=== PATIENT | female | born 1935 | race Caucasian/White ===

== ENCOUNTER 2018-08-09 12:09 | Inpatient (IN) | payer BC, MEDICARE ==
--- NOTE | 2018-08-09 12:33 | ERNOTE ---
Dyspnea - General Presenting Symptoms: shortness of breath Time Seen by Provider: 08/09/18 12:15 Source: patient - Immun/Allergies/Home Medications Immunizations: IMMUNIZATION HX Immunizations Up to Date Yes History of Influenza Vaccine No Hx Pneumococcal Vaccination No Allergies/Adverse Reactions: Allergies simvastatin Allergy (Mild, Verified 08/09/18 12:17) leg swelling soap Allergy (Mild, Verified 08/09/18 12:17) hives iodine Allergy (Verified 08/09/18 12:17) Hives morphine Allergy (Verified 08/09/18 12:17) Penicillins Allergy (Verified 08/09/18 12:17) procaine [Procaine] Allergy (Verified 08/09/18 12:17) procaine HCl [From Novocain] Allergy (Verified 08/09/18 12:17) Sulfa (Sulfonamide Antibiotics) [Sulfa(Sulfonamide Antibiotics)] Allergy (Verified 08/09/18 12:17) Tetanus Vaccines and Toxoid [Tetanus] Allergy (Verified 08/09/18 12:17) Home Medications: HOME MEDICATIONS metoprolol tartrate 50 mg tablet 100 mg PO BID #360 tab 04/26/18 [Last Taken Unknown] albuterol sulfate HFA 90 mcg/actuation aerosol inhaler 2 inh IH Q4H PRN 06/10/18 [Last Taken Unknown] ipratropium-albuterol 0.5 mg-3 mg(2.5 mg base)/3 mL nebulization soln 3 ml IH BID ml 06/10/18 [Last Taken Unknown] acetaminophen ER 650 mg tablet,extended release 650 mg PO Q8H PRN #120 tab 07/20/18 [Last Taken Unknown] cyclobenzaprine 5 mg tablet 5 mg PO TID PRN #90 tab 07/27/18 [Last Taken Unknown] tramadol 50 mg tablet 50 mg PO Q6H #56 tab 08/06/18 [Last Taken Unknown] predniSONE [Prednisone] 2 tab PO DAILY #10 tab 08/07/18 [Last Taken Unknown] Apixaban [Eliquis] 5 mg PO BID 08/09/18 [Last Taken Unknown] - History of Present Illness Narrative: Patient presents to the emergency department with severe shortness of breath. Patient was seen here 3 days ago and it was believed that she might have a pulmonary embolus, as she had an elevated d-dimer, so she was sent home on Eliquis and to arrange for a VQ scan this week. Patient arrived in the emergency department because she was getting worse and family was very worried about her. Severity: severe Treatment MORALE OFFICER: by patient, other - Eliquis Initiating event: Reports: none Frequency of episodes: Reports: no prior episodes Modifying Factors - (Improves): Reports: nothing Modifying Factors (Worsens): Reports: activity Associated Symptoms-Dyspnea: Reports: denies symptoms Prior Treatment: Reports: recently seen, treated by physician Review of Systems - Review of Systems Constitutional: Present: See HPI EYE: Present: no symptoms reported ENT: Present: no symptoms reported Respiratory: Present: See HPI Cardiology: Present: no symptoms reported Gastrointestinal/Abdominal: Present: no symptoms reported Genitourinary: Present: no symptoms reported Musculoskeletal: Present: no symptoms reported Skin: Present: no symptoms reported Neurological: Present: no symptoms reported Endocrine: Present: no symptoms reported Hematologic/Lymphatic: Present: no symptoms reported Psych: Present: no symptoms reported Medical History (Last Reviewed 08/09/18 @ 12:19 by Anisa Ugarte RN) Pulmonary embolism (Resolved) Hypertension (Chronic) Hyperlipidemia (Chronic) Hallux valgus (acquired) (Chronic) b/l COPD (chronic obstructive pulmonary disease) (Chronic) Chronic renal failure, stage 3 (moderate) (Chronic) Breast cancer (Resolved) Onset Date: ~2007 left 4 cycle TC chemo, completed 1 year Herceptin Right fibular fracture Onset Date: ~06/07/01 Surgical History: Surgical History (Last Reviewed 08/09/18 @ 12:19 by Anisa Ugarte RN) History of section Onset Date: Unknown History of colonoscopy Onset Date: ~10/27/12 Dr. Lugo-significant sigmoid diverticulosis History of dental surgery Onset Date: ~1980 all teeth removed History of left mastectomy Onset Date: ~2007 4 cycle TC chemo, completed 1 year Herceptin Tibial plateau fracture, left Onset Date: ~06/07/01 Depressed comminuted lateral tibial plateau fracture-open reduction by Dr. Austin Family History: Family History (Last Reviewed 08/07/18 @ 04:30 by Donald Pulliam MD) Grandfather Myocardial infarction Mother Hypertension CVA (cerebral vascular accident) Renal artery stenosis, transplant Artery from kidney to bladder Social History: Preferred Language Sinhala Smoking Status Former smoker Do you dip or chew tobacco Yes Alcohol Use none Drug Use none (Last Updated 08/04/18 @ 07:36 by Dhruv Ambrose MD) No Social History Section defined Physical Exam - Physical Exam General Appearance: Present: wd/wn, alert, severe distress Head Exam: Present: normal inspection, no evidence of injury Eye Exam: Normal inspection: bilateral, PERRL: bilateral Ears, Nose, Throat: Present: normal ENT inspection, H, normal pharynx Neck: Present: normal inspection, nontender Respiratory: Present: respiratory distress, decreased breath sounds - On the right, wheezing Cardiovascular/Chest: Present: no murmur, normal peripheral pulses, tachycardia Gastrointestinal/Abdominal: Present: normal bowel sounds, nontender, nondistended, soft, no organomegaly Rectal Exam: Present: deferred Back Exam: Present: normal inspection, normal range of motion Extremity Exam: Present: normal inspection, non-tender, no edema, normal range of motion Neurological Exam: Present: alert, oriented, normal mood/affect Skin Exam: Present: warm/dry, pallor Lymphatic Exam: Present: no adenopathy ED Progress - Results and Orders Patient's Lab Results:: I have reviewed the patient's lab results. - Vital Signs Patient's Vital Signs:: I have reviewed the patient's vital signs. Vital Signs: Vital Signs 08/09/18 12:12 Temperature 36.7 C Pulse Rate 103 H Respiratory Rate 33 H Blood Pressure 122/96 H O2 Sat by Pulse Oximetry 88 L - EKG EKG: NSR, other EKG read: Reviewed by me - X-Ray X-Ray #1 X-Ray: chest Interpretation: Reviewed by me - Progress/Reassessment Chief Complaint: Dyspnea Departure Clinical Impression: Hypoxia, Hypercarbia COPD (chronic obstructive pulmonary disease) Qualifiers: COPD type: COPD with acute exacerbation Qualified Code(s): J44.1 - Chronic obstructive pulmonary disease with (acute) exacerbation - Departure Disposition: Still a patient Condition: Critical Referrals: Dhruv Ambrose MD [Primary Care Provider] - Critical Care Note - Critical Care Note Total Time (mins): 45 Comments: After lengthy discussion with the patient and the family patient is opted to make herself a DNR. We discussed intubation and patient would prefer that this not be done so we have instituted BiPAP for her. Patient will need to be admitted to the intensive care unit, and given her underlying renal insufficiency, will arrange for a V/Q scan. Patient was sent home on Eliquis 3 days ago for possible PE, but we will start heparin on her for the time being. Patient will be admitted to Dr. Ambrose.
[2018-08-09] MEDS ORDERED: METHYLPREDNISOLONE SOD SUCC/PF 125 MG/2 ML VIAL ONE (12:34)
[2018-08-09] MEDS ORDERED: METHYLPREDNISOLONE SOD SUCC/PF 125 MG/2 ML VIAL IV ONE (12:36)
[2018-08-09 12:45] LABS: Hemoglobin 14.2 gm/dL (12.5-16.0); Mean Cell Volume 92.2 fl (78-100); Mean Corpuscular Hemoglobin 29.1 pg (27-31); Mean Corpuscular Hgb Conc 31.6 g/dl (32-36); Mean Platelet Volume 9.6 fl (8-12.5); Neutrophil # 8.5 K/mm3 (1.3-6.0); Neutrophil % 77.4 % (42-75.0); Platelet Count 277 K/mm3 (150-450); Red Blood Count 4.88 M/mm3 (4.2-5.4); Red Cell Distribution Width 14.4 % (11.5-14.0); White Blood Count 10.9 K/mm3 (4.0-10.5)
[2018-08-09 12:57] LABS: Prothrombin Time (Patient) 14.3 Seconds (9.0-11.0)
[2018-08-09 12:58] LABS: INR 1.42 INR (0.90-1.10); Partial Thrombolplastin Time 25.7 Seconds (24-32)
[2018-08-09 13:01] LABS: Albumin * 3.3 gm/dl (3.4-5.0); Anion Gap 12.5 mmol/L (6.8-13.8); BUN/Creatinine Ratio 41.5 (9.0-21.6); Bilirubin, Total 0.5 mg/dL (0.0-1.1); Ca. Corrected For Albumin 9.7 mg/dL (8.4-10.2); Calcium * 9.5 mg/dL (7.9-10.9); Carbon Dioxide 29.9 mmol/L (24-32.6); Potassium 4.4 mmol/L (3.4-4.6)
[2018-08-09] MEDS ORDERED: HEPARIN SODIUM,PORCINE 5,000 UNITS/ML VIAL IV ONE (13:17)
[2018-08-09] MEDS ORDERED: HEPARIN SODIUM,PORCINE/D5W 25,000 UNITS/500 ML BAG IV PRN (13:17)
[2018-08-09] MEDS ORDERED: HEPARIN SODIUM,PORCINE 5,000 UNITS/ML VIAL ONE (13:22)
[2018-08-09] MEDS ORDERED: HEPARIN SODIUM,PORCINE/D5W 25,000 UNITS/500 ML BAG IV ONE (13:22)
--- NOTE | 2018-08-09 16:38 | HP ---
Chief Complaint - Chief Complaint Date of Service: 08/09/18 Time of Service: 16:08 Chief Complaint: Shortness of breath History of Present Illness: Leatha Garcia, is an 83-year-old white female, with previous medical history of COPD, chronic renal failure stage III, hypertension, hyperlipidemia, history of breast cancer, history of pulmonary embolism, who was admitted on 08/09/2018 because of increasing shortness of breath. 3 days prior to admission ,the patient was seen here in the emergency room for shortness of breath and was found to have an elevated d-dimer. Because of her allergy to dye they did not do a CT angiogram and gave her Eliquis and discharged her . She was told to call my office to schedule a VQ scan. This morning her shortness of breath got severe and so she went to the emergency room . She was found to be hypoxic saturating in the 80s with 3 L NC. Her ABG on 4 L showed acute respiratory acidosis with hypoxemia and hypercapnea and so she was started on venti-mask and then transitioned to BiPAP 10-5. She was also started on heparin drip and admitted to [facility]. Medical History (Last Reviewed 08/09/18 @ 14:51 by Carly Smith RN) Pulmonary embolism (Suspected) Hypertension (Chronic) Hyperlipidemia (Chronic) Hallux valgus (acquired) (Chronic) b/l COPD (chronic obstructive pulmonary disease) (Chronic) Chronic renal failure, stage 3 (moderate) (Chronic) Breast cancer (Resolved) Onset Date: ~2007 left 4 cycle TC chemo, completed 1 year Herceptin Right fibular fracture Onset Date: ~06/07/01 Surgical History: Surgical History (Last Reviewed 08/09/18 @ 14:51 by Carly Smith RN) History of section Onset Date: Unknown History of colonoscopy Onset Date: ~10/27/12 Dr. Lugo-significant sigmoid diverticulosis History of dental surgery Onset Date: ~1980 all teeth removed History of left mastectomy Onset Date: ~2007 4 cycle TC chemo, completed 1 year Herceptin Tibial plateau fracture, left Onset Date: ~06/07/01 Depressed comminuted lateral tibial plateau fracture-open reduction by Dr. Austin Family History: Family History (Last Reviewed 08/09/18 @ 14:52 by Carly Smith RN) Grandfather Myocardial infarction Mother Hypertension CVA (cerebral vascular accident) Renal artery stenosis, transplant Artery from kidney to bladder Social History: Patient Lives/Resources Home Utilized Occupation retired Preferred Language Central African Do you have any restorationist or No cultural preference? Smoking Status Former smoker Have you smoked in the past 12 No months Do you dip or chew tobacco No Alcohol Use none Drug Use none (Last Updated 08/04/18 @ 07:36 by Dhruv Ambrose MD) No Social History Section defined Review Of Systems (GEN) - Review of Systems Generalized/Overall Review: Absent: Chills, Fever Respiratory: Present: Cough, Shortness of Breath Cardiac: Absent: Chest Pain, Edema, Palpitations Abdominal: Absent: Nausea, Vomiting Genitourinary: Absent: Urgency, Frequency Musculoskeletal: Present: Back Pain Immunizations: IMMUNIZATION HX Immunizations Up to Date Yes History of Influenza Vaccine No Hx Pneumococcal Vaccination No Allergies/Adverse Reactions: Allergies Allergy/AdvReac Type Severity Reaction Status Date / Time simvastatin Allergy Mild leg Verified 08/09/18 14:53 swelling soap Allergy Mild hives Verified 08/09/18 14:53 iodine Allergy Hives Verified 08/09/18 14:53 morphine Allergy Verified 08/09/18 14:53 Penicillins Allergy Verified 08/09/18 14:53 procaine [Procaine] Allergy Verified 08/09/18 14:53 procaine HCl [From Novocain] Allergy Verified 08/09/18 14:53 Sulfa (Sulfonamide Allergy Verified 08/09/18 14:53 Antibiotics) [Sulfa(Sulfonamide Antibiotics)] Tetanus Vaccines and Toxoid Allergy Verified 08/09/18 14:53 [Tetanus] Home Medications: HOME MEDICATIONS metoprolol tartrate 50 mg tablet 100 mg PO BID #360 tab 04/26/18 [Last Taken 08/09/18 09:00] albuterol sulfate HFA 90 mcg/actuation aerosol inhaler 2 inh IH Q4H PRN 06/10/18 [Last Taken Unknown] ipratropium-albuterol 0.5 mg-3 mg(2.5 mg base)/3 mL nebulization soln 3 ml IH BID ml 06/10/18 [Last Taken Unknown] tramadol 50 mg tablet 50 mg PO Q6H #56 tab 08/06/18 [Last Taken Unknown] predniSONE [Prednisone] 2 tab PO DAILY #10 tab 08/07/18 [Last Taken 08/07/18 21:00] Acetaminophen [Acetaminophen ER] 650 mg PO Q8H 08/09/18 [Last Taken 08/09/18 09:00] Apixaban [Eliquis] 5 mg PO BID 08/09/18 [Last Taken 08/09/18 09:00] Cyclobenzaprine HCl 5 mg PO TID 08/09/18 [Last Taken 08/09/18 09:00] Exam - Exam Vital Signs: Vital Signs - Last Taken Temp 36.3 C 08/09/18 15:00 Pulse 76 08/09/18 15:09 Resp 24 H 08/09/18 15:00 BP 123/42 08/09/18 15:00 Pulse Ox 97 08/09/18 15:00 Constitutional: Present: Alert, Oriented x3, Cooperative, Elderly ENT Exam: Present: hearing grossly normal Eye Exam: bilateral eye: normal inspection, PERRL, EOMI Neck: Present: supple Respiratory: Present: decreased breath sounds, rhonchi, No rales, No wheezing Cardiovascular/Chest: Present: regular rate, rhythm, no JVD, no murmur Abdomen: Present: Normal bowel sounds, soft, nontender, nondistended Extremity: Present: no pedal edema, no calf tenderness Diagnostic Studies: Abnormal Lab Results 08/09/18 08/09/18 08/09/18 Range/Units 12:38 12:40 12:40 WBC 10.9 H D (4.0-10.5) K/mm3 MCHC 31.6 L (32-36) g/dl RDW 14.4 H (11.5-14.0) % Immature Gran % (Auto) 0.70 H (0.001-0.429) % Immature Gran # (Auto) 0.08 H (0.000-0.0310) K/mm3 Neutrophils % 77.4 H (42-75.0) % Lymphocytes % 10.1 L (20-51) % Eosinophils % 7.9 H (0.0-3.0) % Neutrophils # 8.5 H (1.3-6.0) K/mm3 Lymphocytes # 1.10 L (1.5-3.5) k/mm3 Eosinophils # 0.9 H (0.0-0.7) k/mm3 PT (9.0-11.0) Seconds INR (Anticoag Therapy) (0.90-1.10) INR pCO2 76.0 H* (32.0-45.0) mmHg pO2 77.2 L (83.0-108.0) mmHg HCO3 28.4 H (21.0-28.0) mmol/L Total CO2 30.7 H (19.0-24.0) mmol/L ABG pH 7.19 L (7.35-7.45) ABG O2 Sat (Measured) 91.6 L (94.0-98.0) % BUN 44 H (3-23) mg/dL Est GFR (Non-Af Amer) 53 L D (60-130) mL/min BUN/Creatinine Ratio 41.5 H (9.0-21.6) Random Glucose 117 H (70-110) mg/dL Total Protein 9.0 H (6.2-8.2) gm/dL Albumin 3.3 L (3.4-5.0) gm/dl 08/09/18 08/09/18 Range/Units 12:40 13:40 WBC (4.0-10.5) K/mm3 MCHC (32-36) g/dl RDW (11.5-14.0) % Immature Gran % (Auto) (0.001-0.429) % Immature Gran # (Auto) (0.000-0.0310) K/mm3 Neutrophils % (42-75.0) % Lymphocytes % (20-51) % Eosinophils % (0.0-3.0) % Neutrophils # (1.3-6.0) K/mm3 Lymphocytes # (1.5-3.5) k/mm3 Eosinophils # (0.0-0.7) k/mm3 PT 14.3 H (9.0-11.0) Seconds INR (Anticoag Therapy) 1.42 H (0.90-1.10) INR pCO2 54.1 H (32.0-45.0) mmHg pO2 124.7 H (83.0-108.0) mmHg HCO3 (21.0-28.0) mmol/L Total CO2 29.0 H (19.0-24.0) mmol/L ABG pH 7.32 L (7.35-7.45) ABG O2 Sat (Measured) 98.2 H (94.0-98.0) % BUN (3-23) mg/dL Est GFR (Non-Af Amer) (60-130) mL/min BUN/Creatinine Ratio (9.0-21.6) Random Glucose (70-110) mg/dL Total Protein (6.2-8.2) gm/dL Albumin (3.4-5.0) gm/dl Laboratory Results WBC 10.9 K/mm3 (4.0-10.5) H D 08/09/18 12:40 RBC 4.88 M/mm3 (4.2-5.4) 08/09/18 12:40 Hgb 14.2 gm/dL (12.5-16.0) 08/09/18 12:40 Hct 45.0 % (37.0-47.0) 08/09/18 12:40 MCV 92.2 fl (78-100) 08/09/18 12:40 MCH 29.1 pg (27-31) 08/09/18 12:40 MCHC 31.6 g/dl (32-36) L 08/09/18 12:40 RDW 14.4 % (11.5-14.0) H 08/09/18 12:40 Plt Count 277 K/mm3 (150-450) 08/09/18 12:40 MPV 9.6 fl (8-12.5) 08/09/18 12:40 Immature Gran % (Auto) 0.70 % (0.001-0.429) H 08/09/18 12:40 Immature Gran # (Auto) 0.08 K/mm3 (0.000-0.0310) H 08/09/18 12:40 Neutrophils % 77.4 % (42-75.0) H 08/09/18 12:40 Lymphocytes % 10.1 % (20-51) L 08/09/18 12:40 Monocytes % 3.6 % (0.0-9) 08/09/18 12:40 Eosinophils % 7.9 % (0.0-3.0) H 08/09/18 12:40 Basophils % 0.3 % (0.0-1.0) 08/09/18 12:40 Nucleated RBC % 0.0 k/mm3 (0-1) 08/09/18 12:40 Neutrophils # 8.5 K/mm3 (1.3-6.0) H 08/09/18 12:40 Lymphocytes # 1.10 k/mm3 (1.5-3.5) L 08/09/18 12:40 Monocytes # 0.4 k/mm3 (0.0-1.0) 08/09/18 12:40 Eosinophils # 0.9 k/mm3 (0.0-0.7) H 08/09/18 12:40 Absolute Basophils 0.0 k/mm3 (0.0-0.1) 08/09/18 12:40 PT 14.3 Seconds (9.0-11.0) H 08/09/18 12:40 INR (Anticoag Therapy) 1.42 INR (0.90-1.10) H 08/09/18 12:40 PTT ([place]) 25.7 Seconds (24-32) 08/09/18 12:40 pCO2 54.1 mmHg (32.0-45.0) H 08/09/18 13:40 pO2 124.7 mmHg (83.0-108.0) H 08/09/18 13:40 HCO3 27.3 mmol/L (21.0-28.0) 08/09/18 13:40 Total CO2 29.0 mmol/L (19.0-24.0) H 08/09/18 13:40 Base Excess 0.3 mmol/L (-2.0-3.0) 08/09/18 13:40 ABG pH 7.32 (7.35-7.45) L 08/09/18 13:40 ABG O2 Sat (Measured) 98.2 % (94.0-98.0) H 08/09/18 13:40 Sodium 137 mmol/L (132-142) 08/09/18 12:40 Plasma Sodium 137 mmol/L (130-142) 08/09/18 12:40 Potassium 4.4 mmol/L (3.4-4.6) 08/09/18 12:40 Chloride 99 mmol/L (97-106) 08/09/18 12:40 Carbon Dioxide 29.9 mmol/L (24-32.6) 08/09/18 12:40 Anion Gap 12.5 mmol/L (6.8-13.8) 08/09/18 12:40 BUN 44 mg/dL (3-23) H 08/09/18 12:40 Creatinine 1.06 mg/dL (0.4-1.4) 08/09/18 12:40 Est GFR (Non-Af Amer) 53 mL/min (60-130) L D 08/09/18 12:40 BUN/Creatinine Ratio 41.5 (9.0-21.6) H 08/09/18 12:40 Random Glucose 117 mg/dL (70-110) H 08/09/18 12:40 Calcium 9.5 mg/dL (7.9-10.9) 08/09/18 12:40 Calcium Adj for Albumin 9.7 mg/dL (8.4-10.2) 08/09/18 12:40 Total Bilirubin 0.5 mg/dL (0.0-1.1) 08/09/18 12:40 AST 25 U/L (0-48) 08/09/18 12:40 ALT 33 U/L (19-67) 08/09/18 12:40 Alkaline Phosphatase 113 U/L (50-170) 08/09/18 12:40 Total Protein 9.0 gm/dL (6.2-8.2) H 08/09/18 12:40 Albumin 3.3 gm/dl (3.4-5.0) L 08/09/18 12:40 Assessment/Plan - Assessment/Plan (1) Acute respiratory failure Assessment: likely due to ACOPDE r/o P.E. continue with BiPap for now. do breathing treatments, IV solumedrol and IV antibiotics. for V/Q scan in the morning. Problem: Acute Qualifiers: Respiratory failure complication: hypoxia and hypercapnia Qualified Code(s): J96.01 - Acute respiratory failure with hypoxia; J96.02 - Acute respiratory failure with hypercapnia (2) COPD exacerbation Assessment: acute bronchitis r/o pulmnary embolism. will do breathing treatments, IV antbiotics, IV solumedrol. Problem: Acute (3) Elevated d-dimer Assessment: r/o P.E. will get V/Q scan tomorrow Problem: Acute (4) Pulmonary embolism Assessment: suspected . H/O P.E. in the past (5-6 years ago) Problem: Suspected (5) Hypertension Problem: Chronic Qualifiers: Hypertension type: essential hypertension Qualified Code(s): I10 - Essential (primary) hypertension (6) Hyperlipidemia Problem: Chronic Qualifiers: Hyperlipidemia type: pure hypercholesterolemia Qualified Code(s): E78.00 - Pure hypercholesterolemia, unspecified; E78.0 - Pure hypercholesterolemia (7) Chronic renal failure, stage 3 (moderate) Problem: Chronic (8) Breast cancer Assessment: history of breast cancer s/p mastectomy and CTX in 2007 Problem: Resolved Qualifiers: Breast location: unspecified site of breast Patient sex: female Laterality: left
[2018-08-09] MEDS ORDERED: METHYLPREDNISOLONE SOD SUCC/PF 40 MG/ML VIAL IV ONE (16:53)
[2018-08-09] MEDS ORDERED: ALBUTEROL SULFATE 2.5 MG/0.5 ML VIAL.NEB IH PRN (16:57)
[2018-08-09] MEDS ORDERED: LEVOFLOXACIN IN DEXTROSE 5 % 750 MG/150 ML BAG IV ONE (16:57)
[2018-08-09 17:25] LABS: Hematocrit 40.4 % (37.0-47.0); Hemoglobin 12.9 gm/dL (12.5-16.0); Mean Cell Volume 93.7 fl (78-100); Mean Corpuscular Hemoglobin 29.9 pg (27-31); Mean Corpuscular Hgb Conc 31.9 g/dl (32-36); Mean Platelet Volume 10.3 fl (8-12.5); Neutrophil # 9.2 K/mm3 (1.3-6.0); Neutrophil % 88.7 % (42-75.0); Platelet Count 215 K/mm3 (150-450); Red Blood Count 4.31 M/mm3 (4.2-5.4); Red Cell Distribution Width 14.6 % (11.5-14.0); White Blood Count 10.4 K/mm3 (4.0-10.5)
[2018-08-09] MEDS: ACETAMINOPHEN 650 MG TABLET PO SCH (17:53)
[2018-08-09] MEDS: traMADol HCL 50 MG TABLET PO SCH ×2 (17:53→22:03)
[2018-08-09] MEDS ORDERED: ALBUTEROL SULFATE/IPRATROPIUM 3 ML NEBU IH ONE (17:55)
[2018-08-09] MEDS: ALBUTEROL SULFATE/IPRATROPIUM 3 ML NEBU IH SCH (17:59)
[2018-08-09 18:03] LABS: Prothrombin Time (Patient) 16.2 Seconds (9.0-11.0)
[2018-08-09 18:04] LABS: INR 1.61 INR (0.90-1.10)
[2018-08-09 18:09] LABS: Partial Thrombolplastin Time 76.5 Seconds (24-32)
[2018-08-09] MEDS: METHYLPREDNISOLONE SOD SUCC/PF 40 MG/ML VIAL IV SCH (20:24)
[2018-08-09] MEDS: METOPROLOL TARTRATE 100 MG TABLET PO SCH (20:26)
[2018-08-10] MEDS: ALBUTEROL SULFATE/IPRATROPIUM 3 ML NEBU IH SCH ×4 (00:07→18:14)
[2018-08-10] MEDS: ACETAMINOPHEN 650 MG TABLET PO SCH ×3 (00:24→16:00)
[2018-08-10] MEDS: METHYLPREDNISOLONE SOD SUCC/PF 40 MG/ML VIAL IV SCH ×3 (04:04→19:43)
[2018-08-10] MEDS: traMADol HCL 50 MG TABLET PO SCH ×4 (05:12→23:06)
--- NOTE | 2018-08-10 08:14 | PN ---
Progess Note - Interim Date: 08/10/18 Time: 08:13 Narrative: 08/10/18 08:13 Patient now on 2 L NC. ABG is greatly improved. Awaiting for V/Q scan. Continue with IV herparin drip for now.
[2018-08-10] MEDS: METOPROLOL TARTRATE 100 MG TABLET PO SCH ×2 (09:49→20:45)
[2018-08-10] MEDS: HEPARIN SODIUM,PORCINE 5,000 UNITS/ML VIAL SC SCH ×2 (11:56→23:04)
--- NOTE | 2018-08-10 12:18 | PN ---
Subjective - Date and Time Seen Date: 08/10/18 Time: 12:10 Subjective Narrative: Patient feels better. Still with some SOB. off BiPap to NC and now on RA . Objective - Review of Systems Generalized/Overall Review: Denies: Chills, Fever EENTM: Denies: Double Vision Respiratory: Reports: Cough, Shortness of Breath Cardiac: Denies: Chest Pain, Edema, Palpitations Abdominal: Denies: Nausea, Vomiting Genitourinary Symptoms: Denies: Urgency, Frequency Musculoskeletal Complaints: Reports: Back Pain - Vitals Vitals: Last Vital Signs Temp 36.2 C 08/10/18 11:00 Pulse 77 08/10/18 11:00 Resp 20 08/10/18 11:00 BP 116/86 08/10/18 11:00 Pulse Ox 95 08/10/18 11:09 - Abnormal Lab Findings Abnormal Lab Findings: Abnormal Lab Results 08/09/18 08/09/18 08/09/18 Range/Units 12:38 12:40 12:40 WBC 10.9 H D (4.0-10.5) K/mm3 MCHC 31.6 L (32-36) g/dl RDW 14.4 H (11.5-14.0) % Immature Gran % (Auto) 0.70 H (0.001-0.429) % Immature Gran # (Auto) 0.08 H (0.000-0.0310) K/mm3 Neutrophils % 77.4 H (42-75.0) % Lymphocytes % 10.1 L (20-51) % Eosinophils % 7.9 H (0.0-3.0) % Neutrophils # 8.5 H (1.3-6.0) K/mm3 Lymphocytes # 1.10 L (1.5-3.5) k/mm3 Eosinophils # 0.9 H (0.0-0.7) k/mm3 PT (9.0-11.0) Seconds INR (Anticoag Therapy) (0.90-1.10) INR PTT ([place]) (24-32) Seconds pCO2 76.0 H* (32.0-45.0) mmHg pO2 77.2 L (83.0-108.0) mmHg HCO3 28.4 H (21.0-28.0) mmol/L Total CO2 30.7 H (19.0-24.0) mmol/L ABG pH 7.19 L (7.35-7.45) ABG O2 Sat (Measured) 91.6 L (94.0-98.0) % BUN 44 H (3-23) mg/dL Est GFR (Non-Af Amer) 53 L D (60-130) mL/min BUN/Creatinine Ratio 41.5 H (9.0-21.6) Random Glucose 117 H (70-110) mg/dL Total Protein 9.0 H (6.2-8.2) gm/dL Albumin 3.3 L (3.4-5.0) gm/dl 08/09/18 08/09/18 08/09/18 Range/Units 12:40 13:40 17:15 WBC (4.0-10.5) K/mm3 MCHC 31.9 L (32-36) g/dl RDW 14.6 H (11.5-14.0) % Immature Gran % (Auto) 0.60 H (0.001-0.429) % Immature Gran # (Auto) 0.06 H (0.000-0.0310) K/mm3 Neutrophils % 88.7 H (42-75.0) % Lymphocytes % 7.7 L (20-51) % Eosinophils % (0.0-3.0) % Neutrophils # 9.2 H (1.3-6.0) K/mm3 Lymphocytes # 0.80 L (1.5-3.5) k/mm3 Eosinophils # (0.0-0.7) k/mm3 PT 14.3 H (9.0-11.0) Seconds INR (Anticoag Therapy) 1.42 H (0.90-1.10) INR PTT ([place]) (24-32) Seconds pCO2 54.1 H (32.0-45.0) mmHg pO2 124.7 H (83.0-108.0) mmHg HCO3 (21.0-28.0) mmol/L Total CO2 29.0 H (19.0-24.0) mmol/L ABG pH 7.32 L (7.35-7.45) ABG O2 Sat (Measured) 98.2 H (94.0-98.0) % BUN (3-23) mg/dL Est GFR (Non-Af Amer) (60-130) mL/min BUN/Creatinine Ratio (9.0-21.6) Random Glucose (70-110) mg/dL Total Protein (6.2-8.2) gm/dL Albumin (3.4-5.0) gm/dl 08/09/18 08/09/18 08/10/18 Range/Units 17:45 23:45 05:05 WBC (4.0-10.5) K/mm3 MCHC (32-36) g/dl RDW (11.5-14.0) % Immature Gran % (Auto) (0.001-0.429) % Immature Gran # (Auto) (0.000-0.0310) K/mm3 Neutrophils % (42-75.0) % Lymphocytes % (20-51) % Eosinophils % (0.0-3.0) % Neutrophils # (1.3-6.0) K/mm3 Lymphocytes # (1.5-3.5) k/mm3 Eosinophils # (0.0-0.7) k/mm3 PT 16.2 H (9.0-11.0) Seconds INR (Anticoag Therapy) 1.61 H (0.90-1.10) INR PTT ([place]) 76.5 H D 74.6 H 70.4 H (24-32) Seconds pCO2 (32.0-45.0) mmHg pO2 (83.0-108.0) mmHg HCO3 (21.0-28.0) mmol/L Total CO2 (19.0-24.0) mmol/L ABG pH (7.35-7.45) ABG O2 Sat (Measured) (94.0-98.0) % BUN (3-23) mg/dL Est GFR (Non-Af Amer) (60-130) mL/min BUN/Creatinine Ratio (9.0-21.6) Random Glucose (70-110) mg/dL Total Protein (6.2-8.2) gm/dL Albumin (3.4-5.0) gm/dl 08/10/18 08/10/18 Range/Units 07:20 11:34 WBC (4.0-10.5) K/mm3 MCHC (32-36) g/dl RDW (11.5-14.0) % Immature Gran % (Auto) (0.001-0.429) % Immature Gran # (Auto) (0.000-0.0310) K/mm3 Neutrophils % (42-75.0) % Lymphocytes % (20-51) % Eosinophils % (0.0-3.0) % Neutrophils # (1.3-6.0) K/mm3 Lymphocytes # (1.5-3.5) k/mm3 Eosinophils # (0.0-0.7) k/mm3 PT (9.0-11.0) Seconds INR (Anticoag Therapy) (0.90-1.10) INR PTT ([place]) 41.5 H D (24-32) Seconds pCO2 (32.0-45.0) mmHg pO2 67.7 L (83.0-108.0) mmHg HCO3 (21.0-28.0) mmol/L Total CO2 25.2 H (19.0-24.0) mmol/L ABG pH (7.35-7.45) ABG O2 Sat (Measured) (94.0-98.0) % BUN (3-23) mg/dL Est GFR (Non-Af Amer) (60-130) mL/min BUN/Creatinine Ratio (9.0-21.6) Random Glucose (70-110) mg/dL Total Protein (6.2-8.2) gm/dL Albumin (3.4-5.0) gm/dl - Exam Constitutional: Present: Alert, Oriented x3, Cooperative ENT Exam: Present: hard of hearing Neck: Present: supple Respiratory: Present: decreased breath sounds, crackles, wheezing - occasional Cardiovascular/Chest: Present: regular rate, rhythm, no JVD, no murmur Abdomen: Present: Normal bowel sounds, soft, nontender, nondistended Extremity: Present: no pedal edema, no calf tenderness Assessment/Plan - Problems/Diagnosis (1) Acute respiratory failure Problem: Resolved Qualifiers: Respiratory failure complication: hypoxia and hypercapnia Qualified Code(s): J96.01 - Acute respiratory failure with hypoxia; J96.02 - Acute respiratory failure with hypercapnia Narrative: ABG basically WNL (2) COPD exacerbation Problem: Acute Narrative: still O2 going down with eating t the 80's. (3) Elevated d-dimer Problem: Acute Narrative: P.E. ruled out on V/Q scan. (4) Pulmonary embolism Problem: Ruled-out Narrative: ruled out. normal V/Q scan. heparin drip d/c. H/O of P.E. in the past. (5) Hypertension Problem: Chronic Qualifiers: Hypertension type: essential hypertension Qualified Code(s): I10 - Essential (primary) hypertension (6) Hyperlipidemia Problem: Chronic Qualifiers: Hyperlipidemia type: pure hypercholesterolemia Qualified Code(s): E78.00 - Pure hypercholesterolemia, unspecified; E78.0 - Pure hypercholesterolemia (7) Chronic renal failure, stage 3 (moderate) Problem: Chronic (8) Breast cancer Problem: Resolved Qualifiers: Breast location: unspecified site of breast Patient sex: female Laterality: left Narrative: history of. s/p mastectomy with CTX in 2007
[2018-08-11] MEDS: ALBUTEROL SULFATE/IPRATROPIUM 3 ML NEBU IH SCH ×3 (00:09→12:45)
[2018-08-11] MEDS: ACETAMINOPHEN 650 MG TABLET PO SCH ×2 (01:03→08:08)
[2018-08-11] MEDS: METHYLPREDNISOLONE SOD SUCC/PF 40 MG/ML VIAL IV SCH (04:59)
[2018-08-11] MEDS: traMADol HCL 50 MG TABLET PO SCH ×2 (05:05→11:21)
[2018-08-11 06:02] LABS: Hematocrit 32.7 % (37.0-47.0); Hemoglobin 10.9 gm/dL (12.5-16.0); Mean Cell Volume 90.6 fl (78-100); Mean Corpuscular Hemoglobin 30.2 pg (27-31); Mean Corpuscular Hgb Conc 33.3 g/dl (32-36); Mean Platelet Volume 9.7 fl (8-12.5); Neutrophil # 12.3 K/mm3 (1.3-6.0); Neutrophil % 89.9 % (42-75.0); Platelet Count 271 K/mm3 (150-450); Red Blood Count 3.61 M/mm3 (4.2-5.4); Red Cell Distribution Width 14.6 % (11.5-14.0); White Blood Count 13.7 K/mm3 (4.0-10.5)
[2018-08-11 06:09] LABS: Anion Gap 11.8 mmol/L (6.8-13.8); Calcium * 9.2 mg/dL (7.9-10.9); Carbon Dioxide 29.4 mmol/L (24-32.6); Estimated Creat Clear 28.4; Potassium 4.2 mmol/L (3.4-4.6)
[2018-08-11] MEDS: METOPROLOL TARTRATE 100 MG TABLET PO SCH (08:07)
--- NOTE | 2018-08-11 08:16 | PN ---
Progess Note - Interim Date: 08/11/18 Time: 08:12 Narrative: 08/11/18 08:12 patient saturating in the 95-95 % on RA. WBC is up but clinically patient is feeling much better. likely due to IV solumedrol. will get PT eval and if safe for transfers, will discharge today. her IV line is on her right ankle, will d/c.
[2018-08-11] MEDS ORDERED: CALCITONIN,SALMON,SYNTHETIC 30 SPRAY BTL NS SCH (09:00)
[2018-08-11] MEDS ORDERED: LISINOPRIL 20 MG TABLET PO SCH (09:00)
[2018-08-11] MEDS ORDERED: predniSONE 20 MG TABLET PO SCH (09:00)
[2018-08-11] MEDS ORDERED: LEVOFLOXACIN 750 MG TABLET PO SCH (11:00)
[2018-08-11] MEDS: HEPARIN SODIUM,PORCINE 5,000 UNITS/ML VIAL SC SCH (11:21)
--- NOTE | 2018-08-11 12:44 | DS ---
(1) Acute respiratory failure Problem: Resolved Qualifiers: Respiratory failure complication: hypoxia and hypercapnia Qualified Code(s): J96.01 - Acute respiratory failure with hypoxia; J96.02 - Acute respiratory failure with hypercapnia (2) COPD exacerbation Problem: Resolved (3) Elevated d-dimer Problem: Acute (4) Pulmonary embolism Diagnosis(s): ruled out Problem: Ruled-out Qualifiers: Pulmonary embolism type: other Chronicity: unspecified Acute cor pulmona le presence: without acute cor pulmonale Qualified Code(s): I26.99 - Other pulmonary embolism without acute cor pulmonale (5) Hypertension Problem: Chronic Qualifiers: Hypertension type: essential hypertension Qualified Code(s): I10 - Essential (primary) hypertension (6) Hyperlipidemia Problem: Chronic Qualifiers: Hyperlipidemia type: pure hypercholesterolemia Qualified Code(s): E78.00 - Pure hypercholesterolemia, unspecified; E78.0 - Pure hypercholesterolemia (7) Chronic renal failure, stage 3 (moderate) Problem: Chronic (8) Breast cancer Diagnosis(s): history of breast cancer s/p mastectomy and CTX Problem: Resolved Qualifiers: Breast location: unspecified site of breast Patient sex: female Laterality: left (9) Compression fracture of body of thoracic vertebra Diagnosis(s): T12 Problem: Acute Description of Stay: Leatha Garcia, is an 83-year-old white female, with previous medical history of COPD, chronic renal failure stage III, hypertension, hyperlipidemia, history of breast cancer, history of pulmonary embolism, who was admitted on 08/09/2018 because of increasing shortness of breath. 3 days prior to admission ,the patient was seen here in the emergency room for shortness of breath and was found to have an elevated d-dimer. Because of her allergy to dye they did not do a CT angiogram and gave her Eliquis and discharged her . She was told to call my office to schedule a VQ scan. On the morning of admission, her shortness of breath got severe and so she went to the emergency room . She was found to be hypoxic saturating in the 80s with 3 L NC. Her ABG on 4 L showed acute respiratory acidosis with hypoxemia and hypercapnea and so she was started on venti-mask and then transitioned to BiPAP 10-5. She was also started on heparin drip and admitted to SCU. She was started on Levaquin, IV solumedrol and breathing treatments for possible ACOPDE. The following day her V/O scan came back as low probablilty for P.E.. Her Heparin drip was stopped. She was put on NC and weaned to RA. She is saturating in the 95-96 % at rest and would go down to the 90% with exertion. PT sasy she was safe for transfers and to go home. Will discharge her on her duoneb, Proair, Levaquin and Prednisone. Follow up with me in 5 days. Procedures Performed: none Results and Findings: Pending Mircobiology Results 08/09/18 17:45 Blood Blood Culture - Preliminary NO GROWTH 24 HOURS 08/09/18 17:00 Blood Blood Culture - Preliminary NO GROWTH 24 HOURS Lab Pending Results 08/09/18 12:38: pCO2 76.0 H*, pO2 77.2 L, HCO3 28.4 H, Total CO2 30.7 H, Base Excess -1.8, ABG pH 7.19 L, ABG O2 Sat (Measured) 91.6 L 08/09/18 12:40: WBC 10.9 H D, RBC 4.88, Hgb 14.2, Hct 45.0, MCV 92.2, MCH 29.1, MCHC 31.6 L, RDW 14.4 H, Plt Count 277, MPV 9.6, Immature Gran % (Auto) 0.70 H, Immature Gran # (Auto) 0.08 H, Neutrophils % 77.4 H, Lymphocytes % 10.1 L, Monocytes % 3.6, Eosinophils % 7.9 H, Basophils % 0.3, Nucleated RBC % 0.0, Neutrophils # 8.5 H, Lymphocytes # 1.10 L, Monocytes # 0.4, Eosinophils # 0.9 H, Absolute Basophils 0.0 08/09/18 12:40: Sodium 137, Plasma Sodium 137, Potassium 4.4, Chloride 99, Carbon Dioxide 29.9, Anion Gap 12.5, BUN 44 H, Creatinine 1.06, Est GFR (Non-Af Amer) 53 L D, BUN/Creatinine Ratio 41.5 H, Random Glucose 117 H, Calcium 9.5, Calcium Adj for Albumin 9.7, Total Bilirubin 0.5, AST 25, ALT 33, Alkaline Phosphatase 113, Total Protein 9.0 H, Albumin 3.3 L 08/09/18 12:40: PT 14.3 H, INR (Anticoag Therapy) 1.42 H, PTT (Nemo) 25.7 08/09/18 13:40: pCO2 54.1 H, pO2 124.7 H, HCO3 27.3, Total CO2 29.0 H, Base Excess 0.3, ABG pH 7.32 L, ABG O2 Sat (Measured) 98.2 H 08/09/18 17:15: WBC 10.4, RBC 4.31, Hgb 12.9, Hct 40.4, MCV 93.7, MCH 29.9, MCHC 31.9 L, RDW 14.6 H, Plt Count 215, MPV 10.3, Immature Gran % (Auto) 0.60 H, Immature Gran # (Auto) 0.06 H, Neutrophils % 88.7 H, Lymphocytes % 7.7 L, Monocytes % 1.5, Eosinophils % 1.2, Basophils % 0.3, Nucleated RBC % 0.0, Neutrophils # 9.2 H, Lymphocytes # 0.80 L, Monocytes # 0.2, Eosinophils # 0.1, Absolute Basophils 0.0 08/09/18 17:45: PT 16.2 H, INR (Anticoag Therapy) 1.61 H, PTT (Nemo) 76.5 H D 08/09/18 23:45: PTT (Nemo) 74.6 H 08/10/18 05:05: PTT (Nemo) 70.4 H 08/10/18 07:20: pCO2 36.3, pO2 67.7 L, HCO3 24.1, Total CO2 25.2 H, Base Excess 0.3, ABG pH 7.44, ABG O2 Sat (Measured) 94.2 08/10/18 11:34: PTT (Nemo) 41.5 H D 08/11/18 05:44: WBC 13.7 H D, RBC 3.61 L, Hgb 10.9 L, Hct 32.7 L, MCV 90.6, MCH 30.2, MCHC 33.3, RDW 14.6 H, Plt Count 271, MPV 9.7, Immature Gran % (Auto) 0.80 H, Immature Gran # (Auto) 0.11 H, Neutrophils % 89.9 H, Lymphocytes % 5.8 L, Monocytes % 3.4, Eosinophils % 0.0, Basophils % 0.1, Nucleated RBC % 0.0, Neutrophils # 12.3 H, Lymphocytes # 0.80 L, Monocytes # 0.5, Eosinophils # 0.0, Absolute Basophils 0.0 08/11/18 05:44: Sodium 137, Plasma Sodium 138, Potassium 4.2, Chloride 100, Carbon Dioxide 29.4, Anion Gap 11.8, BUN 57 H, Creatinine 1.24, Est GFR (Non-Af Amer) 44 L, BUN/Creatinine Ratio 46.0 H, Random Glucose 168 H D, Calcium 9.2 Discharge Location: Home Disposition: Home self-care Condition: Stable Discharge Activity: Activity as tolerated, No Lifting Discharge Diet: Low salt, Low fat/chol Referrals: Dhruv Ambrose MD [Primary Care Provider] - Additional Patient Instructions (free text): -Please make TCM appointment unless prison discharge. Thank you! Phoebe @ [phone]. follow up with me in 5 days Prescriptions (Any new or edited meds): Calcitonin,Midnight,Synthetic [Miacalcin Nasal [place]] 1 spray NS DAILY #1 btl Levofloxacin [Levaquin] 750 mg PO Q48H 5 Days #5 tablet Lisinopril [Zestril] 20 mg PO DAILY #30 tablet predniSONE [Prednisone] 40 mg PO DAILY 5 Days #10 tablet predniSONE [Prednisone] 2 tab PO DAILY #10 tab Complete Home Medications List: Complete Home Medication List: metoprolol tartrate 50 mg tablet 100 mg PO BID #360 tab 04/26/18 albuterol sulfate HFA 90 mcg/actuation aerosol inhaler 2 inh IH Q4H PRN 06/10/18 ipratropium-albuterol 0.5 mg-3 mg(2.5 mg base)/3 mL nebulization soln 3 ml IH B ID ml 06/10/18 tramadol 50 mg tablet 50 mg PO Q6H #56 tab 08/06/18 Acetaminophen [Acetaminophen ER] 650 mg PO Q8H 08/09/18 Cyclobenzaprine HCl 5 mg PO TID 08/09/18 Calcitonin,Midnight,Synthetic [Miacalcin Nasal [place]] 1 spray NS DAILY #1 btl 08/11/18 Levofloxacin [Levaquin] 750 mg PO Q48H 5 Days #5 tablet 08/11/18 Lisinopril [Zestril] 20 mg PO DAILY #30 tablet 08/11/18 predniSONE [Prednisone] 2 tab PO DAILY #10 tab 08/11/18 predniSONE [Prednisone] 40 mg PO DAILY 5 Days #10 tablet 08/11/18 Amb Orders for Discharge: [facility] Diagnostic Time Frame: 1 Week, Location: Radiology
[2018-08-11 14:07] VITALS: BP 156/58
== END 2018-08-11 14:08 | disposition home or self-care (01) | DRG 189 ==
LOC: ER 12:09 → SCU 13:54 → MS 08-10 11:00
PROVIDERS: ADMIT Internal Medicine; ATTEND Internal Medicine
DX: M48.54XA Collapsed vertebra, not elsewhere classified, thoracic region, initial encounter for fracture; Z92.21 Personal history of antineoplastic chemotherapy; N18.3 Chronic kidney disease, stage 3 (moderate); M20.11 Hallux valgus (acquired), right foot; J44.1 Chronic obstructive pulmonary disease with (acute) exacerbation; Z85.3 Personal history of malignant neoplasm of breast; Z87.891 Personal history of nicotine dependence; Z79.01 Long term (current) use of anticoagulants; R79.89 Other specified abnormal findings of blood chemistry; M20.12 Hallux valgus (acquired), left foot; R79.1 Abnormal coagulation profile; I12.9 Hypertensive chronic kidney disease with stage 1 through stage 4 chronic kidney disease, or unspecified chronic kidney disease; Z86.711 Personal history of pulmonary embolism; J96.01 Acute respiratory failure with hypoxia; Z90.12 Acquired absence of left breast and nipple; J96.02 Acute respiratory failure with hypercapnia; Z66 Do not resuscitate; E78.00 Pure hypercholesterolemia, unspecified
CPT/HCPCS: 36415; 36600; 71010; 71020; 71045; 71046; 78582; 80048; 80053; 82803; 83519; 83880; 85025; 85379; 85610; 85730; 87040; 93005; 94640; 94660; 94664; 94760; 96365; 96374; 96375; 97161; 99285; 99291; A9539; A9540; A9567